=== PATIENT | female | born 1995 | race Caucasian/White ===

== ENCOUNTER 2022-04-29 16:01 | Emergency (ER) | payer OTHER ==
[~2022-04-29 16:01] MED LIST: IBUPROFEN600 MG PO; LODINE CAP 300300 MG PO; NORFLEX 100 MG100 MG PO
[2022-04-29] MEDS ORDERED: ULTRAM50 MG PO (19:36)
[2022-04-30] MEDS ORDERED: ULTRAM50 MG PO ×2 (11:33→11:37)
== END 2022-04-29 20:50 | disposition home or self-care (01) ==
LOC: ER1 16:01
DX: S43.402A Unspecified sprain of left shoulder joint, initial encounter (principal); X50.9XXA Other and unspecified overexertion or strenuous movements or postures, initial encounter
CPT/HCPCS: 73030; 99283